=== PATIENT | male | born 1975 | race Caucasian/White ===

== ENCOUNTER 2017-04-19 21:07 | Emergency (ER) | payer SELFPAY ==
[~2017-04-19] VITALS: Ht 172.7 cm; Wt 100.0 kg
[2017-04-19 21:26] VITALS: BP 157/105
== END 2017-04-19 22:12 | disposition home or self-care (01) ==
LOC: EMS 21:09
DX: B86 Scabies (principal); R03.0 Elevated blood-pressure reading, without diagnosis of hypertension; F17.210 Nicotine dependence, cigarettes, uncomplicated
CPT/HCPCS: 99283

== ENCOUNTER 2017-08-01 21:59 | Emergency (ER) | payer MEDICAID ==
[~2017-08-01] VITALS: Ht 170.2 cm; Wt 97.3 kg
[2017-08-01 22:24] VITALS: BP 150/103
[2017-08-01] MEDS ORDERED: GABA-533 PO (22:30)
[2017-08-01] MEDS ORDERED: TEST5GEL TD (22:30)
[2017-08-01 23:18] LABS: AMPHET/METH SCREEN,URINE POSITIVE (NEGATIVE); BARBITURATE SCREEN, URINE NEGATIVE (NEGATIVE); BENZODIAZEPINES SCREEN,URINE NEGATIVE (NEGATIVE); CANNABINOID SCREEN,URINE POSITIVE (NEGATIVE); COCAINE SCREEN,URINE NEGATIVE (NEGATIVE); METHADONE SCREEN, URINE NEGATIVE (NEGATIVE); OPIATE SCREEN,URINE NEGATIVE (NEGATIVE)
[2017-08-01 23:20] LABS: PHENCYCLIDINE SCREEN,URINE NEGATIVE (NEGATIVE)
== END 2017-08-02 00:33 | disposition home or self-care (01) ==
LOC: EMS 22:00
DX: F41.9 Anxiety disorder, unspecified (principal); F19.10 Other psychoactive substance abuse, uncomplicated; I10 Essential (primary) hypertension; Z87.442 Personal history of urinary calculi; F17.210 Nicotine dependence, cigarettes, uncomplicated; Z79.899 Other long term (current) drug therapy
CPT/HCPCS: 99284

== ENCOUNTER 2017-09-25 17:45 | Inpatient (IN) | payer MEDICAID ==
[~2017-09-25] VITALS: Ht 170.2 cm; Wt 88.5 kg
[~2017-09-25 17:45] MED LIST: GABA-533 PO; TEST5GEL TD
[2017-09-25] MEDS ORDERED: ZOLPIDEM TARTRATE 10 MG TABLET PO PRN (18:15)
[2017-09-25 18:41] VITALS: BP 154/86
[2017-09-25 18:45] VITALS: BP 127/87
[2017-09-25] MEDS ORDERED: MAG HYDROX/AL HYDROX/SIMETH ES 30 ML SUSPENSION UDCUP PO PRN (20:00)
[2017-09-25] MEDS ORDERED: PETROLATUM,WHITE 71 GM JELLY TP PRN (20:00)
[2017-09-25] MEDS ORDERED: ONDANSETRON HCL 4 MG TABLET PO PRN (20:00)
[2017-09-25] MEDS ORDERED: MAGNESIUM HYDROXIDE SUSPENSION 30 ML UDCUP PO PRN (20:00)
[2017-09-25] MEDS ORDERED: IBUPROFEN 400 MG TABLET PO PRN (20:00)
[2017-09-25] MEDS ORDERED: DOCUSATE SODIUM 100 MG CAPSULE PO PRN (20:00)
[2017-09-25] MEDS ORDERED: ACETAMINOPHEN 325 MG TABLET PO PRN (20:00)
[2017-09-25] MEDS ORDERED: CloNIDine HCL 0.1 MG TABLET PO PRN (20:00)
[2017-09-25] MEDS ORDERED: PERMETHRIN 5% 60 GM CREAM TP ONE (20:00)
[2017-09-25] MEDS ORDERED: ALBUTEROL SULFATE HFA 90 MCG/PUFF 8 GM INHALER IH PRN (20:00)
[2017-09-25] MEDS ORDERED: LOPERAMIDE HCL 2 MG CAPSULE PO PRN (20:00)
[2017-09-25] MEDS: LORazepam 2 MG TABLET PO PRN (21:36)
[2017-09-26 06:04] VITALS: BP 120/70
[2017-09-26 08:26] VITALS: BP 114/67
[2017-09-26 08:56] LABS: BASOPHILS % (AUTO) 1.1 % (0.0-2.0); EOSINOPHILS % (AUTO) 4.5 % (1.0-6.0); HEMATOCRIT 39.1 % (41-53); HEMOGLOBIN 13.5 g/dL (13.5-17.5); LYMPHOCYTES # (AUTO) 1.7 K/uL (1.0-4.8); LYMPHOCYTES % (AUTO) 43.9 % (22.0-44.0); MEAN CORPUSCULAR HEMOGLOBIN 30.7 pg (26.0-34.0); MEAN CORPUSCULAR HGB CONC 34.6 G/dL (31.0-37.0); MEAN CORPUSCULAR VOLUME 89 fL (80-100); MONOCYTES # (AUTO) 0.3 K/uL (0.1-1.0); MONOCYTES % (AUTO) 8.9 % (2.0-9.0); NEUTROPHILS # (AUTO) 1.6 K/uL (1.8-7.7); NEUTROPHILS % (AUTO) 41.6 % (40.0-70.0); PLATELET COUNT (AUTO) 269 K/uL (150-450); RED BLOOD CELL COUNT(AUTO) 4.41 MIL/uL (4.50-5.90); RED CELL DISTRIBUTION WIDTH 14.3 % (11.5-14.5)
[2017-09-26] MEDS ORDERED: TESTOSTERONE 1% 50 MG-5 GM GEL PACKET TD SCH (09:00)
[2017-09-26 09:27] LABS: HEMOGLOBIN A1C 5.4 % (4.5-6.2)
[2017-09-26 09:29] LABS: ALANINE AMINOTRANSFERASE 37 U/L (12-78); ALBUMIN 3.4 g/dL (3.4-5.0); ALKALINE PHOSPHATASE 127 U/L (46-116); ANION GAP 8 mmol/L (8-16); ASPARTATE AMINOTRANSFERASE 21 U/L (15-37); BILIRUBIN,TOTAL 0.5 mg/dL (0.1-1.0); CALCIUM, TOTAL 8.8 mg/dL (8.8-10.5); CARBON DIOXIDE 27 mmol/L (22-29); CHLORIDE 101 mmol/L (98-107); CHOL/HDL RATIO 4.6 (4.2-7.3); CHOLESTEROL 176 mg/dL (131-200); CREATININE 0.91 mg/dL (0.60-1.30); FREE T4 (FREE THYROXINE) 0.98 ng/dL (0.76-1.46); GLOMERULAR FILTR. RATE CALC > 60 mL/min (>60); GLUCOSE,RANDOM 90 mg/dL (70-110); HDL CHOLESTEROL 38 mg/dL (40-60); LDL CHOL (CALC.) 91 mg/dL (0-130); POTASSIUM 3.7 mmol/L (3.5-5.1); SODIUM SERUM 136 mmol/L (136-145); THYROID STIMULATING HORMONE 0.65 uIU/mL (0.36-3.74); TOTAL PROTEIN, SERUM 6.8 g/dL (6.4-8.2); TRIGLYCERIDES 233 mg/dL (15-150); UREA NITROGEN, BLOOD 18 mg/dL (7-18)
[2017-09-26] MEDS: NICOTINE 14 MG/24 HOUR PATCH TD SCH (10:12)
[2017-09-26] MEDS: GABAPENTIN 400 MG CAPSULE PO SCH ×3 (10:13→16:51)
[2017-09-26] MEDS ORDERED: PNEUMOCOCCAL VACCINE POLYVALENT 0.5 ML VIAL [PPSV23] IM ONE (12:15)
[2017-09-26 16:26] VITALS: BP 110/84
[2017-09-26] MEDS: LORazepam 2 MG TABLET PO PRN (18:14)
[2017-09-27 02:43] VITALS: BP 119/72
[2017-09-27 08:52] VITALS: BP 116/76
[2017-09-27] MEDS: TESTOSTERONE 1% 50 MG-5 GM GEL PACKET TD SCH (09:02)
[2017-09-27] MEDS: NICOTINE 14 MG/24 HOUR PATCH TD SCH (09:02)
[2017-09-27] MEDS: GABAPENTIN 400 MG CAPSULE PO SCH ×3 (09:02→17:01)
[2017-09-27] MEDS: LORazepam 2 MG TABLET PO PRN ×2 (09:43→20:50)
[2017-09-27 16:14] VITALS: BP 119/70
[2017-09-28 00:50] VITALS: BP 116/73
[2017-09-28] MEDS: LORazepam 2 MG TABLET PO PRN ×3 (01:40→15:42)
[2017-09-28 08:00] VITALS: BP 120/72
[2017-09-28] MEDS: GABAPENTIN 400 MG CAPSULE PO SCH ×3 (08:13→16:18)
[2017-09-28] MEDS: NICOTINE 14 MG/24 HOUR PATCH TD SCH (08:13)
[2017-09-28] MEDS: TESTOSTERONE 1% 50 MG-5 GM GEL PACKET TD SCH (08:14)
[2017-09-28 09:25] LABS: BASOPHILS % (AUTO) 0.7 % (0.0-2.0); EOSINOPHILS % (AUTO) 3.8 % (1.0-6.0); HEMATOCRIT 40.5 % (41-53); HEMOGLOBIN 13.7 g/dL (13.5-17.5); LYMPHOCYTES # (AUTO) 1.9 K/uL (1.0-4.8); LYMPHOCYTES % (AUTO) 40.7 % (22.0-44.0); MEAN CORPUSCULAR HEMOGLOBIN 30.3 pg (26.0-34.0); MEAN CORPUSCULAR HGB CONC 33.9 G/dL (31.0-37.0); MEAN CORPUSCULAR VOLUME 90 fL (80-100); MONOCYTES # (AUTO) 0.3 K/uL (0.1-1.0); MONOCYTES % (AUTO) 7.1 % (2.0-9.0); NEUTROPHILS # (AUTO) 2.2 K/uL (1.8-7.7); NEUTROPHILS % (AUTO) 47.7 % (40.0-70.0); PLATELET COUNT (AUTO) 255 K/uL (150-450); RED BLOOD CELL COUNT(AUTO) 4.53 MIL/uL (4.50-5.90); RED CELL DISTRIBUTION WIDTH 14.6 % (11.5-14.5)
[2017-09-28] MEDS: HALOPERIDOL 5 MG TABLET PO PRN (15:41)
[2017-09-28] MEDS: MUPIROCIN CALCIUM 2% 15 GM CREAM TP SCH (18:00)
[2017-09-29 01:17] VITALS: BP 111/62
[2017-09-29] MEDS: LORazepam 2 MG TABLET PO PRN ×2 (06:45→12:48)
[2017-09-29] MEDS: TESTOSTERONE 1% 50 MG-5 GM GEL PACKET TD SCH (08:59)
[2017-09-29] MEDS: GABAPENTIN 400 MG CAPSULE PO SCH ×3 (08:59→16:15)
[2017-09-29] MEDS: NICOTINE 14 MG/24 HOUR PATCH TD SCH (09:01)
[2017-09-29] MEDS: MUPIROCIN CALCIUM 2% 15 GM CREAM TP SCH ×2 (09:02→16:18)
[2017-09-29 09:19] VITALS: BP 130/65
[2017-09-29] MEDS: HALOPERIDOL 5 MG TABLET PO PRN ×2 (09:27→16:24)
[2017-09-29 16:14] VITALS: BP 116/69
[2017-09-30 01:13] VITALS: BP 118/78
[2017-09-30] MEDS: LORazepam 2 MG TABLET PO PRN ×2 (03:15→08:20)
[2017-09-30] MEDS: GABAPENTIN 400 MG CAPSULE PO SCH ×2 (08:19→13:14)
[2017-09-30] MEDS: TESTOSTERONE 1% 50 MG-5 GM GEL PACKET TD SCH (08:20)
[2017-09-30] MEDS: NICOTINE 14 MG/24 HOUR PATCH TD SCH (08:20)
[2017-09-30] MEDS: MUPIROCIN CALCIUM 2% 15 GM CREAM TP SCH (08:21)
[2017-09-30 08:24] VITALS: BP 122/66
[2017-09-30] MEDS ORDERED: MUPI15CR TP (11:36)
== END 2017-09-30 13:40 | disposition home or self-care (01) | DRG 750 ==
LOC: B2S 18:04
PROVIDERS: ADMIT Psychiatry & Neurology Psychiatry; ATTEND Psychiatry & Neurology Psychiatry
PROC: 3E0234Z Introduction of Serum, Toxoid and Vaccine into Muscle, Percutaneous Approach (ICD-10-PCS; principal; 2017-09-27)
DX: F20.0 Paranoid schizophrenia (principal); G62.9 Polyneuropathy, unspecified; I10 Essential (primary) hypertension; F17.200 Nicotine dependence, unspecified, uncomplicated; F12.90 Cannabis use, unspecified, uncomplicated; E78.5 Hyperlipidemia, unspecified; D72.819 Decreased white blood cell count, unspecified; F19.10 Other psychoactive substance abuse, uncomplicated; Z23 Encounter for immunization; Z71.41 Alcohol abuse counseling and surveillance of alcoholic; Z79.899 Other long term (current) drug therapy; Z65.3 Problems related to other legal circumstances; Z71.51 Drug abuse counseling and surveillance of drug abuser
CPT/HCPCS: 83036; 84439; 84443; 87081; 90471

== ENCOUNTER 2017-11-14 02:22 | Inpatient (IN) | payer MEDICAID ==
[~2017-11-14] VITALS: Ht 170.2 cm; Wt 87.3 kg
[~2017-11-14 02:22] MED LIST changes: +MUPI15CR TP; -TEST5GEL TD
[2017-11-14 03:00] VITALS: BP 120/80
[2017-11-14] MEDS ORDERED: GABA-533 PO (09:12)
[2017-11-14] MEDS ORDERED: TRAM50TA4 PO (09:12)
[2017-11-14 10:51] VITALS: BP 112/74
[2017-11-14] MEDS ORDERED: CloNIDine HCL 0.1 MG TABLET PO PRN (11:45)
[2017-11-14] MEDS: GABAPENTIN 400 MG CAPSULE PO SCH ×2 (12:55→17:14)
[2017-11-14] MEDS: NICOTINE 21 MG/24 HOUR PATCH TD SCH (12:55)
[2017-11-14 16:20] VITALS: BP 116/70
[2017-11-15 05:04] VITALS: BP 117/72
[2017-11-15 08:07] VITALS: BP 114/71
[2017-11-15] MEDS: GABAPENTIN 400 MG CAPSULE PO SCH ×3 (08:49→16:29)
[2017-11-15] MEDS: NICOTINE 21 MG/24 HOUR PATCH TD SCH (08:49)
[2017-11-15] MEDS ORDERED: LOPERAMIDE HCL 2 MG CAPSULE PO PRN (14:15)
[2017-11-15 16:00] VITALS: BP 129/80
[2017-11-16 05:50] VITALS: BP 128/79
[2017-11-16] MEDS: NICOTINE 21 MG/24 HOUR PATCH TD SCH (08:25)
[2017-11-16] MEDS: GABAPENTIN 400 MG CAPSULE PO SCH ×2 (08:25→12:36)
[2017-11-16 08:50] VITALS: BP 124/78
== END 2017-11-16 13:05 | disposition home or self-care (01) | DRG 750 ==
LOC: B3A 03:08
PROVIDERS: ADMIT Psychiatry & Neurology Psychiatry; ATTEND Psychiatry & Neurology Psychiatry
DX: F25.9 Schizoaffective disorder, unspecified (principal); R45.851 Suicidal ideations; Z59.0 Homelessness
CPT/HCPCS: 87081

== ENCOUNTER 2017-11-14 05:10 | Emergency (ER) | payer MEDICAID ==
[~2017-11-14] VITALS: Ht 170.2 cm; Wt 90.9 kg
[2017-11-14] MEDS ORDERED: IBUPROFEN 600 MG TABLET PO ONE (06:15)
[2017-11-14 06:29] LABS: BASOPHILS % (AUTO) 0.8 % (0.0-2.0); EOSINOPHILS % (AUTO) 0.7 % (1.0-6.0); HEMATOCRIT 40.2 % (41-53); HEMOGLOBIN 13.7 g/dL (13.5-17.5); LYMPHOCYTES # (AUTO) 1.4 K/uL (1.0-4.8); LYMPHOCYTES % (AUTO) 21.7 % (22.0-44.0); MEAN CORPUSCULAR HEMOGLOBIN 30.4 pg (26.0-34.0); MEAN CORPUSCULAR HGB CONC 34.1 G/dL (31.0-37.0); MEAN CORPUSCULAR VOLUME 89 fL (80-100); MONOCYTES # (AUTO) 0.5 K/uL (0.1-1.0); MONOCYTES % (AUTO) 8.7 % (2.0-9.0); NEUTROPHILS # (AUTO) 4.3 K/uL (1.8-7.7); NEUTROPHILS % (AUTO) 68.1 % (40.0-70.0); PLATELET COUNT (AUTO) 216 K/uL (150-450); RED CELL DISTRIBUTION WIDTH 14.3 % (11.5-14.5)
[2017-11-14 06:48] LABS: ANION GAP 6 mmol/L (8-16); CALCIUM, TOTAL 9.1 mg/dL (8.8-10.5); CARBON DIOXIDE 29 mmol/L (22-29); CHLORIDE 104 mmol/L (98-107); CREATININE 1.03 mg/dL (0.60-1.30); GLOMERULAR FILTR. RATE CALC > 60 mL/min (>60); GLUCOSE,RANDOM 95 mg/dL (70-110); POTASSIUM 4.6 mmol/L (3.5-5.1); SODIUM SERUM 139 mmol/L (136-145); UREA NITROGEN, BLOOD 21 mg/dL (7-18)
[2017-11-14 06:53] LABS: ALANINE AMINOTRANSFERASE 51 U/L (12-78); ALBUMIN 4.2 g/dL (3.4-5.0); ALKALINE PHOSPHATASE 130 U/L (46-116); ASPARTATE AMINOTRANSFERASE 41 U/L (15-37); BILIRUBIN,TOTAL 0.7 mg/dL (0.1-1.0); TOTAL PROTEIN, SERUM 7.9 g/dL (6.4-8.2)
[2017-11-14 08:41] VITALS: BP 127/79
[2017-11-14] MEDS ORDERED: GABA-533 PO (09:12)
[2017-11-14] MEDS ORDERED: TRAM50TA4 PO (09:12)
== END 2017-11-14 09:59 | disposition other institution (70) ==
LOC: EMS 05:10
DX: F20.9 Schizophrenia, unspecified (principal); J02.8 Acute pharyngitis due to other specified organisms; R19.7 Diarrhea, unspecified; F32.9 Major depressive disorder, single episode, unspecified; F12.90 Cannabis use, unspecified, uncomplicated; F17.210 Nicotine dependence, cigarettes, uncomplicated; Z91.018 Allergy to other foods
CPT/HCPCS: 36415; 80053; 85025; 87430; 99285; G0480

== ENCOUNTER 2017-11-27 05:42 | Inpatient (IN) | payer MEDICAID ==
[~2017-11-27] VITALS: Ht 170.2 cm; Wt 87.5 kg
[~2017-11-27 05:42] MED LIST changes: -MUPI15CR TP
[2017-11-27 07:30] VITALS: BP 158/88
[2017-11-27 10:21] VITALS: BP 149/97
[2017-11-27] MEDS ORDERED: CloNIDine HCL 0.1 MG TABLET PO PRN (11:30)
[2017-11-27 13:23] VITALS: BP 136/90
[2017-11-27 16:00] VITALS: BP 140/88
[2017-11-27] MEDS: LORazepam 2 MG TABLET PO PRN (17:29)
[2017-11-27] MEDS ORDERED: IBUPROFEN 600 MG TABLET PO PRN (18:15)
[2017-11-27] MEDS ORDERED: ACETAMINOPHEN 325 MG TABLET PO PRN (18:15)
[2017-11-28 06:42] VITALS: BP 105/63
[2017-11-28 08:17] VITALS: BP 110/61
[2017-11-28] MEDS: DIVALPROEX SODIUM 500 MG DR TABLET PO SCH ×2 (08:59→16:47)
[2017-11-28] MEDS: RisperiDONE 1 MG TABLET PO SCH ×2 (08:59→16:47)
[2017-11-28] MEDS: LITHIUM CARBONATE 300 MG CAPSULE PO SCH ×2 (08:59→16:47)
[2017-11-28] MEDS: AmLODIPine BESYLATE 2.5 MG TABLET PO SCH (09:00)
[2017-11-28 09:07] LABS: AMPHET/METH SCREEN,URINE POSITIVE (NEGATIVE); BARBITURATE SCREEN, URINE NEGATIVE (NEGATIVE); BENZODIAZEPINES SCREEN,URINE NEGATIVE (NEGATIVE); CANNABINOID SCREEN,URINE POSITIVE (NEGATIVE); COCAINE SCREEN,URINE NEGATIVE (NEGATIVE); METHADONE SCREEN, URINE NEGATIVE (NEGATIVE); OPIATE SCREEN,URINE NEGATIVE (NEGATIVE)
[2017-11-28 09:08] LABS: PHENCYCLIDINE SCREEN,URINE NEGATIVE (NEGATIVE)
[2017-11-28 09:11] LABS: BILIRUBIN,URINE NEGATIVE (NEGATIVE); GLUCOSE, URINE (UA) NEGATIVE (NEGATIVE); KETONES,URINE NEGATIVE (NEGATIVE); LEUKOCYTE ESTERASE ,URINE NEGATIVE (NEGATIVE); NITRATE,URINE NEGATIVE (NEGATIVE); OCCULT BLOOD,URINE NEGATIVE (NEGATIVE); PH,URINE 7.5 (5.0-8.0); PROTEIN,URINE NEGATIVE (NEGATIVE); UROBILINOGEN,URINE 0.2 mg/dL (<=1.0)
[2017-11-28 09:37] LABS: APPEARANCE,URINE CLEAR (CLEAR)
[2017-11-28] MEDS: LORazepam 2 MG TABLET PO PRN ×2 (09:55→16:47)
[2017-11-28 16:00] VITALS: BP 120/72
[2017-11-28] MEDS: HALOPERIDOL 5 MG TABLET PO PRN (16:48)
[2017-11-29 03:44] VITALS: BP 111/79
[2017-11-29 08:13] VITALS: BP 114/76
[2017-11-29] MEDS: LITHIUM CARBONATE 300 MG CAPSULE PO SCH ×2 (08:54→16:46)
[2017-11-29] MEDS: DIVALPROEX SODIUM 500 MG DR TABLET PO SCH ×2 (08:54→16:46)
[2017-11-29] MEDS: RisperiDONE 1 MG TABLET PO SCH ×2 (08:54→16:46)
[2017-11-29] MEDS: AmLODIPine BESYLATE 2.5 MG TABLET PO SCH (08:55)
[2017-11-29] MEDS: LORazepam 2 MG TABLET PO PRN (15:06)
[2017-11-29 16:00] VITALS: BP 114/69
[2017-11-29] MEDS: HALOPERIDOL 5 MG TABLET PO PRN (16:46)
[2017-11-29] MEDS: ZOLPIDEM TARTRATE 10 MG TABLET PO PRN (20:50)
[2017-11-30 06:29] VITALS: BP 114/68
[2017-11-30 08:06] VITALS: BP 122/61
[2017-11-30] MEDS: DIVALPROEX SODIUM 500 MG DR TABLET PO SCH ×2 (08:39→16:52)
[2017-11-30] MEDS: LITHIUM CARBONATE 300 MG CAPSULE PO SCH ×2 (08:39→16:52)
[2017-11-30] MEDS: RisperiDONE 1 MG TABLET PO SCH ×2 (08:39→16:53)
[2017-11-30] MEDS: AmLODIPine BESYLATE 2.5 MG TABLET PO SCH (08:40)
[2017-11-30] MEDS: LORazepam 2 MG TABLET PO PRN ×2 (10:08→17:18)
[2017-11-30 16:00] VITALS: BP 130/79
[2017-11-30] MEDS: HALOPERIDOL 5 MG TABLET PO PRN (17:18)
[2017-12-01 06:19] VITALS: BP 110/63
[2017-12-01 08:07] VITALS: BP 112/64
[2017-12-01] MEDS: AmLODIPine BESYLATE 2.5 MG TABLET PO SCH (08:25)
[2017-12-01] MEDS: DIVALPROEX SODIUM 500 MG DR TABLET PO SCH ×2 (08:26→16:23)
[2017-12-01] MEDS: LITHIUM CARBONATE 300 MG CAPSULE PO SCH ×3 (08:26→16:23)
[2017-12-01] MEDS: RisperiDONE 1 MG TABLET PO SCH ×2 (08:26→16:23)
[2017-12-01 08:59] LABS: LITHIUM 0.27 mmol/L (0.60-1.20)
[2017-12-01] MEDS: LORazepam 2 MG TABLET PO PRN ×2 (12:18→16:23)
[2017-12-01] MEDS: HALOPERIDOL 5 MG TABLET PO PRN (16:23)
[2017-12-01 17:46] VITALS: BP 121/73
[2017-12-02 04:59] VITALS: BP 118/72
[2017-12-02 08:05] VITALS: BP 120/68
[2017-12-02] MEDS: LITHIUM CARBONATE 300 MG CAPSULE PO SCH ×3 (08:27→16:16)
[2017-12-02] MEDS: DIVALPROEX SODIUM 500 MG DR TABLET PO SCH ×2 (08:27→16:16)
[2017-12-02] MEDS: RisperiDONE 1 MG TABLET PO SCH ×2 (08:27→16:16)
[2017-12-02] MEDS: AmLODIPine BESYLATE 2.5 MG TABLET PO SCH (08:27)
[2017-12-02] MEDS: LORazepam 2 MG TABLET PO PRN ×2 (12:46→16:46)
[2017-12-02 16:00] VITALS: BP 115/77
[2017-12-02] MEDS: ZOLPIDEM TARTRATE 10 MG TABLET PO PRN (23:57)
[2017-12-03 01:38] VITALS: BP 137/87
[2017-12-03 08:07] VITALS: BP 120/81
[2017-12-03] MEDS: DIVALPROEX SODIUM 500 MG DR TABLET PO SCH ×2 (08:33→16:40)
[2017-12-03] MEDS: LITHIUM CARBONATE 300 MG CAPSULE PO SCH ×3 (08:33→16:40)
[2017-12-03] MEDS: RisperiDONE 1 MG TABLET PO SCH ×2 (08:33→16:40)
[2017-12-03] MEDS: AmLODIPine BESYLATE 2.5 MG TABLET PO SCH (08:33)
[2017-12-03] MEDS: LORazepam 2 MG TABLET PO PRN ×2 (11:18→16:40)
[2017-12-03 16:00] VITALS: BP 124/87
[2017-12-03] MEDS: HALOPERIDOL 5 MG TABLET PO PRN (16:40)
[2017-12-03] MEDS: ZOLPIDEM TARTRATE 10 MG TABLET PO PRN (20:56)
[2017-12-04 00:10] VITALS: BP 128/85
[2017-12-04] MEDS: LORazepam 2 MG TABLET PO PRN ×2 (00:55→21:24)
[2017-12-04] MEDS: HALOPERIDOL 5 MG TABLET PO PRN (00:55)
[2017-12-04 08:06] VITALS: BP 110/62
[2017-12-04 08:32] LABS: BASOPHILS % (AUTO) 0.8 % (0.0-2.0); HEMATOCRIT 42.6 % (41-53); HEMOGLOBIN 14.5 g/dL (13.5-17.5); LYMPHOCYTES % (AUTO) 41.6 % (22.0-44.0); MEAN CORPUSCULAR HEMOGLOBIN 29.8 pg (26.0-34.0); MEAN CORPUSCULAR HGB CONC 33.9 G/dL (31.0-37.0); MEAN CORPUSCULAR VOLUME 88 fL (80-100); MONOCYTES # (AUTO) 0.4 K/uL (0.1-1.0); MONOCYTES % (AUTO) 7.6 % (2.0-9.0); NEUTROPHILS # (AUTO) 2.3 K/uL (1.8-7.7); PLATELET COUNT (AUTO) 235 K/uL (150-450); RED BLOOD CELL COUNT(AUTO) 4.85 MIL/uL (4.50-5.90)
[2017-12-04] MEDS: AmLODIPine BESYLATE 2.5 MG TABLET PO SCH (08:35)
[2017-12-04] MEDS: LITHIUM CARBONATE 300 MG CAPSULE PO SCH ×3 (08:35→16:27)
[2017-12-04] MEDS: DIVALPROEX SODIUM 500 MG DR TABLET PO SCH ×2 (08:35→16:27)
[2017-12-04] MEDS: RisperiDONE 1 MG TABLET PO SCH ×2 (08:35→16:27)
[2017-12-04 09:17] LABS: ALANINE AMINOTRANSFERASE 36 U/L (12-78); ALBUMIN 3.8 g/dL (3.4-5.0); ALKALINE PHOSPHATASE 112 U/L (46-116); ANION GAP 8 mmol/L (8-16); ASPARTATE AMINOTRANSFERASE 17 U/L (15-37); BILIRUBIN,TOTAL 0.5 mg/dL (0.1-1.0); CALCIUM, TOTAL 9.6 mg/dL (8.8-10.5); CARBON DIOXIDE 29 mmol/L (22-29); CHLORIDE 105 mmol/L (98-107); CHOL/HDL RATIO 5.7 (4.2-7.3); CHOLESTEROL 198 mg/dL (131-200); CREATININE 0.99 mg/dL (0.60-1.30); GLOMERULAR FILTR. RATE CALC > 60 mL/min (>60); GLUCOSE,RANDOM 89 mg/dL (70-110); HDL CHOLESTEROL 35 mg/dL (40-60); LDL CHOL (CALC.) 101 mg/dL (0-130); POTASSIUM 4.4 mmol/L (3.5-5.1); SODIUM SERUM 142 mmol/L (136-145); TOTAL PROTEIN, SERUM 7.2 g/dL (6.4-8.2); TRIGLYCERIDES 310 mg/dL (15-150); UREA NITROGEN, BLOOD 13 mg/dL (7-18)
[2017-12-04 11:17] LABS: LITHIUM 0.53 mmol/L (0.60-1.20)
[2017-12-04 16:00] VITALS: BP 111/65
[2017-12-04] MEDS: ZOLPIDEM TARTRATE 10 MG TABLET PO PRN (21:24)
[2017-12-05 00:34] VITALS: BP 128/79
[2017-12-05 08:34] VITALS: BP 121/76
[2017-12-05] MEDS: LITHIUM CARBONATE 300 MG CAPSULE PO SCH ×3 (08:39→16:58)
[2017-12-05] MEDS: DIVALPROEX SODIUM 500 MG DR TABLET PO SCH ×2 (08:40→16:58)
[2017-12-05] MEDS: RisperiDONE 1 MG TABLET PO SCH ×2 (08:40→16:58)
[2017-12-05] MEDS: AmLODIPine BESYLATE 2.5 MG TABLET PO SCH (08:40)
[2017-12-05] MEDS: LORazepam 2 MG TABLET PO PRN ×3 (10:25→20:59)
[2017-12-05] MEDS: HALOPERIDOL 5 MG TABLET PO PRN ×2 (10:25→16:58)
[2017-12-05 16:33] VITALS: BP 116/64
[2017-12-05] MEDS: ZOLPIDEM TARTRATE 10 MG TABLET PO PRN (20:59)
[2017-12-06 00:43] VITALS: BP 121/78
[2017-12-06] MEDS: DIVALPROEX SODIUM 500 MG DR TABLET PO SCH ×2 (08:09→16:14)
[2017-12-06] MEDS: AmLODIPine BESYLATE 2.5 MG TABLET PO SCH (08:09)
[2017-12-06] MEDS: HALOPERIDOL 5 MG TABLET PO PRN (08:09)
[2017-12-06] MEDS: LORazepam 2 MG TABLET PO PRN ×3 (08:09→16:14)
[2017-12-06] MEDS: LITHIUM CARBONATE 300 MG CAPSULE PO SCH ×3 (08:09→17:21)
[2017-12-06] MEDS: RisperiDONE 1 MG TABLET PO SCH ×2 (08:09→16:14)
[2017-12-06 08:54] VITALS: BP 138/80
[2017-12-06 16:27] VITALS: BP 122/68
[2017-12-07 00:02] VITALS: BP 141/88
[2017-12-07] MEDS: ZOLPIDEM TARTRATE 10 MG TABLET PO PRN (00:04)
[2017-12-07] MEDS: LORazepam 2 MG TABLET PO PRN (00:04)
[2017-12-07] MEDS: HALOPERIDOL 5 MG TABLET PO PRN (00:04)
[2017-12-07] MEDS: DIVALPROEX SODIUM 500 MG DR TABLET PO SCH (08:35)
[2017-12-07] MEDS: AmLODIPine BESYLATE 2.5 MG TABLET PO SCH (08:35)
[2017-12-07] MEDS: LITHIUM CARBONATE 300 MG CAPSULE PO SCH ×2 (08:35→12:44)
[2017-12-07] MEDS: RisperiDONE 1 MG TABLET PO SCH (08:35)
[2017-12-07 09:29] VITALS: BP 135/78
[2017-12-07] MEDS ORDERED: DIVA500T2 PO (12:17)
[2017-12-07] MEDS ORDERED: LITH300C3 PO (12:20)
[2017-12-07] MEDS ORDERED: RISP1 PO (12:21)
[2017-12-07] MEDS ORDERED: AMLO2.5T3 PO (12:21)
== END 2017-12-07 14:45 | disposition home or self-care (01) | DRG 750 ==
LOC: B3A 09:40 → EDSTATUS 10:07 → B3A 11-29 13:14
PROVIDERS: ADMIT Psychiatry & Neurology Psychiatry; ATTEND Psychiatry & Neurology Psychiatry
DX: F20.0 Paranoid schizophrenia (principal); Z59.0 Homelessness; E78.1 Pure hyperglyceridemia; I10 Essential (primary) hypertension; Z23 Encounter for immunization
CPT/HCPCS: 80307; 87081; 90686

== ENCOUNTER 2019-05-04 09:07 | Inpatient (IN) | payer MEDICAID ==
[~2019-05-04] VITALS: Ht 170.2 cm; Wt 86.1 kg
[~2019-05-04 09:07] MED LIST changes: +AMLO2.5T2 PO; +DIVA-78 PO; -GABA-533 PO; +LITH300C3 PO; +MVITFE PO; +RISP1 PO
[2019-05-04 15:10] VITALS: BP 157/88
[2019-05-04] MEDS ORDERED: HALOPERIDOL 5 MG TABLET PO PRN (15:30)
[2019-05-04] MEDS ORDERED: ZOLPIDEM TARTRATE 10 MG TABLET PO PRN (15:30)
[2019-05-04] MEDS ORDERED: -PHARMACY VACCINE NOTE- MISC ONE (16:15)
[2019-05-04] MEDS: LORazepam 2 MG TABLET PO PRN (16:32)
[2019-05-04 18:07] VITALS: BP_SYST 148; BP_SYST 157; BP_DIAS 86; BP_DIAS 88
[2019-05-04] MEDS: NICOTINE 21 MG/24 HOUR PATCH TD SCH (18:15)
[2019-05-05 06:15] VITALS: BP 132/75
[2019-05-05 08:00] VITALS: BP 126/65
[2019-05-05 08:17] LABS: EOSINOPHILS % (AUTO) 1.9 % (1.0-6.0); HEMATOCRIT 39.8 % (41-53); HEMOGLOBIN 13.1 g/dL (13.5-17.5); LYMPHOCYTES # (AUTO) 1.7 K/uL (1.0-4.8); LYMPHOCYTES % (AUTO) 39.9 % (22.0-44.0); MEAN CORPUSCULAR HEMOGLOBIN 29.9 pg (26.0-34.0); MEAN CORPUSCULAR VOLUME 91 fL (80-100); MONOCYTES # (AUTO) 0.3 K/uL (0.1-1.0); NEUTROPHILS # (AUTO) 2.1 K/uL (1.8-7.7); NEUTROPHILS % (AUTO) 49.2 % (40.0-70.0); PLATELET COUNT (AUTO) 301 K/uL (150-450); RED BLOOD CELL COUNT(AUTO) 4.39 MIL/uL (4.50-5.90); RED CELL DISTRIBUTION WIDTH 14.2 % (11.5-14.5)
[2019-05-05 08:33] LABS: LITHIUM < 0.20 mmol/L (0.60-1.20)
[2019-05-05] MEDS: RisperiDONE 1 MG TABLET PO SCH ×2 (08:43→17:09)
[2019-05-05] MEDS: AmLODIPine BESYLATE 2.5 MG TABLET PO SCH (08:43)
[2019-05-05] MEDS: LITHIUM CARBONATE 300 MG CAPSULE PO SCH ×2 (08:43→17:09)
[2019-05-05] MEDS: NICOTINE 21 MG/24 HOUR PATCH TD SCH ×2 (08:44→11:48)
[2019-05-05 08:49] LABS: ALANINE AMINOTRANSFERASE 40 U/L (12-78); ALBUMIN 3.6 g/dL (3.4-5.0); ALKALINE PHOSPHATASE 139 U/L (46-116); ANION GAP 4 mmol/L (8-16); ASPARTATE AMINOTRANSFERASE 24 U/L (15-37); BILIRUBIN,TOTAL 0.4 mg/dL (0.1-1.0); CALCIUM, TOTAL 9.5 mg/dL (8.8-10.5); CARBON DIOXIDE 30 mmol/L (22-29); CHLORIDE 104 mmol/L (98-107); CHOL/HDL RATIO 4.4 (4.2-7.3); CHOLESTEROL 206 mg/dL (131-200); CREATININE 1.11 mg/dL (0.60-1.30); GLOMERULAR FILTR. RATE CALC > 60 mL/min (>60); GLUCOSE,RANDOM 96 mg/dL (70-110); HDL CHOLESTEROL 47 mg/dL (40-60); LDL CHOL (CALC.) 135 mg/dL (0-130); POTASSIUM 4.1 mmol/L (3.5-5.1); SODIUM SERUM 138 mmol/L (136-145); TOTAL PROTEIN, SERUM 7.4 g/dL (6.4-8.2); TRIGLYCERIDES 119 mg/dL (15-150); UREA NITROGEN, BLOOD 14 mg/dL (7-18); VALPROIC ACID < 3 mcg/mL (50-100)
[2019-05-05 16:11] VITALS: BP 129/75
[2019-05-05] MEDS ORDERED: ACETAMINOPHEN 325 MG TABLET PO PRN (16:45)
[2019-05-05] MEDS ORDERED: IBUPROFEN 600 MG TABLET PO PRN (16:45)
[2019-05-05] MEDS: LORazepam 2 MG TABLET PO PRN (17:09)
[2019-05-05] MEDS: DIVALPROEX SODIUM 500 MG DR TABLET PO SCH (20:55)
[2019-05-06 06:25] VITALS: BP 114/70
[2019-05-06 08:16] VITALS: BP 124/79
[2019-05-06] MEDS: AmLODIPine BESYLATE 2.5 MG TABLET PO SCH (08:19)
[2019-05-06] MEDS: LITHIUM CARBONATE 300 MG CAPSULE PO SCH ×2 (08:19→16:47)
[2019-05-06] MEDS: NICOTINE 21 MG/24 HOUR PATCH TD SCH (09:08)
[2019-05-06] MEDS: RisperiDONE 1 MG TABLET PO SCH ×2 (09:15→16:47)
[2019-05-06] MEDS: LORazepam 2 MG TABLET PO PRN ×2 (14:16→20:31)
[2019-05-06 16:06] VITALS: BP 138/70
[2019-05-06] MEDS: DIVALPROEX SODIUM 500 MG DR TABLET PO SCH (20:31)
[2019-05-07 00:56] VITALS: BP 107/65
[2019-05-07] MEDS: LITHIUM CARBONATE 300 MG CAPSULE PO SCH (08:47)
[2019-05-07] MEDS: RisperiDONE 1 MG TABLET PO SCH (08:47)
[2019-05-07 08:49] VITALS: BP 126/71
[2019-05-07] MEDS: AmLODIPine BESYLATE 2.5 MG TABLET PO SCH (08:49)
[2019-05-07] MEDS: NICOTINE 21 MG/24 HOUR PATCH TD SCH (08:56)
[2019-05-07] MEDS ORDERED: LITH300C3 PO (10:35)
== END 2019-05-07 13:43 | disposition home or self-care (01) | DRG 750 ==
LOC: B2S 16:02 → B3A 16:16 → UNDODISIN 05-07 13:30
PROVIDERS: ADMIT Psychiatry & Neurology Psychiatry; ATTEND Psychiatry & Neurology Psychiatry
DX: F25.9 Schizoaffective disorder, unspecified (principal); D64.9 Anemia, unspecified; E78.1 Pure hyperglyceridemia; F12.90 Cannabis use, unspecified, uncomplicated; F15.90 Other stimulant use, unspecified, uncomplicated; I10 Essential (primary) hypertension
CPT/HCPCS: 80074

== ENCOUNTER 2019-06-02 06:53 | Inpatient (IN) | payer MEDICAID ==
[~2019-06-02] VITALS: Ht 167.6 cm; Wt 82.7 kg
[~2019-06-02 06:53] MED LIST changes: -MVITFE PO
[2019-06-02 09:16] VITALS: BP 145/96
[2019-06-02] MEDS ORDERED: ZOLPIDEM TARTRATE 10 MG TABLET PO PRN (09:30)
[2019-06-02] MEDS ORDERED: IBUPROFEN 600 MG TABLET PO PRN ×2 (10:15→19:45)
[2019-06-02] MEDS: LORazepam 2 MG TABLET PO PRN (10:17)
[2019-06-02] MEDS: HALOPERIDOL 5 MG TABLET PO PRN (10:17)
[2019-06-02 10:37] VITALS: BP 124/81
[2019-06-02 10:43] VITALS: BP 124/81
[2019-06-02] MEDS ORDERED: AMLO5TAB9 PO (12:50)
[2019-06-02] MEDS ORDERED: INFLUENZA VIRUS VACCINE QVS 2019-20 (3YR+)/PF 60 MCG/0.5 ML SYRINGE IM ONE (13:00)
[2019-06-02] MEDS ORDERED: -PHARMACY VACCINE NOTE- MISC ONE (13:00)
[2019-06-02 16:21] VITALS: BP 116/76
[2019-06-02] MEDS ORDERED: BACITRACIN 28.4 GM OINTMENT TP PRN (19:45)
[2019-06-02] MEDS ORDERED: PETROLATUM,WHITE 28 GM JELLY TP PRN (19:45)
[2019-06-02] MEDS ORDERED: ONDANSETRON HCL 4 MG TABLET PO PRN (19:45)
[2019-06-02] MEDS ORDERED: BENZOCAINE/MENTHOL LOZENGE MM PRN (19:45)
[2019-06-02] MEDS ORDERED: MAG HYDROX/AL HYDROX/SIMETH ES 30 ML SUSPENSION UDCUP PO PRN (19:45)
[2019-06-02] MEDS ORDERED: DOCUSATE SODIUM 100 MG CAPSULE PO PRN (19:45)
[2019-06-02] MEDS ORDERED: ACETAMINOPHEN 325 MG TABLET PO PRN (19:45)
[2019-06-02] MEDS ORDERED: ALBUTEROL SULFATE HFA 90 MCG/PUFF 8 GM INHALER IH PRN (19:45)
[2019-06-02] MEDS ORDERED: OMEPRAZOLE 20 MG CAPSULE PO PRN (19:45)
[2019-06-02] MEDS ORDERED: CloNIDine HCL 0.1 MG TABLET PO PRN (19:45)
[2019-06-02] MEDS ORDERED: LOPERAMIDE HCL 2 MG CAPSULE PO PRN (19:45)
[2019-06-02] MEDS ORDERED: MAGNESIUM HYDROXIDE SUSPENSION 30 ML UDCUP PO PRN (19:45)
[2019-06-03 06:46] VITALS: BP 107/58
[2019-06-03 08:18] VITALS: BP 106/68
[2019-06-03 08:28] LABS: BASOPHILS % (AUTO) 0.5 % (0.0-2.0); HEMATOCRIT 39.6 % (41-53); HEMOGLOBIN 13.2 g/dL (13.5-17.5); LYMPHOCYTES # (AUTO) 1.3 K/uL (1.0-4.8); LYMPHOCYTES % (AUTO) 28.5 % (22.0-44.0); MEAN CORPUSCULAR HEMOGLOBIN 29.9 pg (26.0-34.0); MEAN CORPUSCULAR HGB CONC 33.4 G/dL (31.0-37.0); MEAN CORPUSCULAR VOLUME 90 fL (80-100); MONOCYTES # (AUTO) 0.3 K/uL (0.1-1.0); MONOCYTES % (AUTO) 6.2 % (2.0-9.0); NEUTROPHILS # (AUTO) 2.9 K/uL (1.8-7.7); NEUTROPHILS % (AUTO) 61.8 % (40.0-70.0); PLATELET COUNT (AUTO) 269 K/uL (150-450); RED BLOOD CELL COUNT(AUTO) 4.43 MIL/uL (4.50-5.90); RED CELL DISTRIBUTION WIDTH 14.2 % (11.5-14.5)
[2019-06-03 08:59] LABS: ALANINE AMINOTRANSFERASE 33 U/L (12-78); ALBUMIN 3.5 g/dL (3.4-5.0); ALKALINE PHOSPHATASE 153 U/L (46-116); ANION GAP 7 mmol/L (8-16); ASPARTATE AMINOTRANSFERASE 20 U/L (15-37); BILIRUBIN,TOTAL 0.8 mg/dL (0.1-1.0); CALCIUM, TOTAL 9.3 mg/dL (8.8-10.5); CARBON DIOXIDE 30 mmol/L (22-29); CHLORIDE 104 mmol/L (98-107); CHOL/HDL RATIO 3.3 (4.2-7.3); CHOLESTEROL 161 mg/dL (131-200); CREATININE 0.98 mg/dL (0.60-1.30); GLOMERULAR FILTR. RATE CALC > 60 mL/min (>60); GLUCOSE,RANDOM 100 mg/dL (70-110); HDL CHOLESTEROL 49 mg/dL (40-60); LDL CHOL (CALC.) 88 mg/dL (0-130); SODIUM SERUM 141 mmol/L (136-145); TOTAL PROTEIN, SERUM 6.8 g/dL (6.4-8.2); TRIGLYCERIDES 118 mg/dL (15-150); UREA NITROGEN, BLOOD 9 mg/dL (7-18)
[2019-06-03 09:17] LABS: HEMOGLOBIN A1C 5.5 % (3.8-5.6)
[2019-06-03 09:21] LABS: LITHIUM < 0.20 mmol/L (0.60-1.20)
[2019-06-03] MEDS: RisperiDONE 1 MG TABLET PO SCH ×2 (10:10→17:23)
[2019-06-03] MEDS: LITHIUM CARBONATE 300 MG CAPSULE PO SCH ×2 (10:10→17:23)
[2019-06-03 17:24] VITALS: BP 119/84
[2019-06-03] MEDS: DIVALPROEX SODIUM 500 MG DR TABLET PO SCH (21:00)
[2019-06-04 08:19] LABS: AMPHET/METH SCREEN,URINE POSITIVE (NEGATIVE); BARBITURATE SCREEN, URINE NEGATIVE (NEGATIVE); BENZODIAZEPINES SCREEN,URINE NEGATIVE (NEGATIVE); CANNABINOID SCREEN,URINE POSITIVE (NEGATIVE); COCAINE SCREEN,URINE NEGATIVE (NEGATIVE); METHADONE SCREEN, URINE NEGATIVE (NEGATIVE)
[2019-06-04 08:21] LABS: BILIRUBIN,URINE NEGATIVE (NEGATIVE); GLUCOSE, URINE (UA) NEGATIVE (NEGATIVE); KETONES,URINE NEGATIVE (NEGATIVE); LEUKOCYTE ESTERASE ,URINE NEGATIVE (NEGATIVE); NITRATE,URINE NEGATIVE (NEGATIVE); OCCULT BLOOD,URINE NEGATIVE (NEGATIVE); PROTEIN,URINE NEGATIVE (NEGATIVE)
[2019-06-04 08:28] VITALS: BP 120/70
[2019-06-04 08:34] LABS: OPIATE SCREEN,URINE NEGATIVE (NEGATIVE)
[2019-06-04 08:35] LABS: APPEARANCE,URINE CLEAR (CLEAR)
[2019-06-04 08:36] LABS: PHENCYCLIDINE SCREEN,URINE NEGATIVE (NEGATIVE)
[2019-06-04] MEDS: RisperiDONE 1 MG TABLET PO SCH ×2 (09:00→16:41)
[2019-06-04] MEDS: LITHIUM CARBONATE 300 MG CAPSULE PO SCH ×2 (09:30→16:41)
[2019-06-04] MEDS: HALOPERIDOL 5 MG TABLET PO PRN (09:46)
[2019-06-04] MEDS: LORazepam 2 MG TABLET PO PRN ×2 (09:46→20:52)
[2019-06-04 16:07] VITALS: BP 114/72
[2019-06-04] MEDS: DIVALPROEX SODIUM 500 MG DR TABLET PO SCH (20:52)
[2019-06-05 05:52] VITALS: BP 111/71
[2019-06-05 08:34] VITALS: BP 120/73
[2019-06-05] MEDS: RisperiDONE 1 MG TABLET PO SCH (09:16)
[2019-06-05] MEDS: LITHIUM CARBONATE 300 MG CAPSULE PO SCH (09:16)
== END 2019-06-05 15:03 | disposition home or self-care (01) | DRG 750 ==
LOC: B3A 09:46
PROVIDERS: ADMIT Psychiatry & Neurology Psychiatry; ATTEND Psychiatry & Neurology Psychiatry
DX: F20.0 Paranoid schizophrenia (principal); R45.851 Suicidal ideations; G62.9 Polyneuropathy, unspecified; I10 Essential (primary) hypertension; F10.10 Alcohol abuse, uncomplicated; F41.9 Anxiety disorder, unspecified; F12.90 Cannabis use, unspecified, uncomplicated; E78.5 Hyperlipidemia, unspecified; F17.200 Nicotine dependence, unspecified, uncomplicated; F19.10 Other psychoactive substance abuse, uncomplicated; Y90.9 Presence of alcohol in blood, level not specified; Q98.4 Klinefelter syndrome, unspecified; Z28.21 Immunization not carried out because of patient refusal
CPT/HCPCS: 80307; 83036; 87081

== ENCOUNTER 2019-06-13 21:10 | Inpatient (IN) | payer MEDICAID ==
[~2019-06-13] VITALS: Ht 167.6 cm; Wt 76.7 kg
[~2019-06-13 21:10] MED LIST changes: -AMLO2.5T2 PO
[2019-06-13 22:33] LABS: BASOPHILS % (AUTO) 0.6 % (0.0-2.0); EOSINOPHILS % (AUTO) 1.3 % (1.0-6.0); HEMATOCRIT 38.4 % (41-53); HEMOGLOBIN 12.9 g/dL (13.5-17.5); LYMPHOCYTES # (AUTO) 1.4 K/uL (1.0-4.8); LYMPHOCYTES % (AUTO) 20.2 % (22.0-44.0); MEAN CORPUSCULAR HEMOGLOBIN 29.9 pg (26.0-34.0); MEAN CORPUSCULAR HGB CONC 33.7 G/dL (31.0-37.0); MEAN CORPUSCULAR VOLUME 89 fL (80-100); MONOCYTES # (AUTO) 0.4 K/uL (0.1-1.0); MONOCYTES % (AUTO) 6.3 % (2.0-9.0); NEUTROPHILS % (AUTO) 71.6 % (40.0-70.0); PLATELET COUNT (AUTO) 327 K/uL (150-450); RED BLOOD CELL COUNT(AUTO) 4.33 MIL/uL (4.50-5.90); RED CELL DISTRIBUTION WIDTH 14.4 % (11.5-14.5)
[2019-06-13 22:45] LABS: ANION GAP 11 mmol/L (8-16); CALCIUM, TOTAL 9.1 mg/dL (8.8-10.5); CARBON DIOXIDE 27 mmol/L (22-29); CHLORIDE 102 mmol/L (98-107); CREATININE 0.97 mg/dL (0.60-1.30); GLOMERULAR FILTR. RATE CALC > 60 mL/min (>60); GLUCOSE,RANDOM 112 mg/dL (70-110); POTASSIUM 3.7 mmol/L (3.5-5.1); SODIUM SERUM 140 mmol/L (136-145); UREA NITROGEN, BLOOD 14 mg/dL (7-18)
[2019-06-13 22:50] LABS: ALANINE AMINOTRANSFERASE 42 U/L (12-78); ALBUMIN 3.9 g/dL (3.4-5.0); ALKALINE PHOSPHATASE 153 U/L (46-116); ASPARTATE AMINOTRANSFERASE 38 U/L (15-37); BILIRUBIN,TOTAL 0.5 mg/dL (0.1-1.0); TOTAL PROTEIN, SERUM 7.5 g/dL (6.4-8.2)
[2019-06-13 23:25] LABS: LITHIUM < 0.20 mmol/L (0.60-1.20)
[2019-06-14] MEDS ORDERED: -PHARMACY VACCINE NOTE- MISC ONE (04:15)
[2019-06-14 08:00] VITALS: BP 131/70
[2019-06-14] MEDS: LORazepam 2 MG TABLET PO PRN ×2 (10:42→19:46)
[2019-06-14] MEDS ORDERED: MAGNESIUM HYDROXIDE SUSPENSION 30 ML UDCUP PO PRN (11:30)
[2019-06-14] MEDS ORDERED: CloNIDine HCL 0.1 MG TABLET PO PRN (11:30)
[2019-06-14] MEDS ORDERED: OMEPRAZOLE 20 MG CAPSULE PO PRN (11:30)
[2019-06-14] MEDS ORDERED: DOCUSATE SODIUM 100 MG CAPSULE PO PRN (11:30)
[2019-06-14] MEDS ORDERED: BENZOCAINE/MENTHOL LOZENGE MM PRN (11:30)
[2019-06-14] MEDS ORDERED: BACITRACIN 28.4 GM OINTMENT TP PRN (11:30)
[2019-06-14] MEDS ORDERED: MAG HYDROX/AL HYDROX/SIMETH ES 30 ML SUSPENSION UDCUP PO PRN (11:30)
[2019-06-14] MEDS ORDERED: ONDANSETRON HCL 4 MG TABLET PO PRN (11:30)
[2019-06-14] MEDS ORDERED: ACETAMINOPHEN 325 MG TABLET PO PRN (11:30)
[2019-06-14] MEDS ORDERED: ALBUTEROL SULFATE HFA 90 MCG/PUFF 8 GM INHALER IH PRN (11:30)
[2019-06-14] MEDS ORDERED: LOPERAMIDE HCL 2 MG CAPSULE PO PRN (11:30)
[2019-06-14] MEDS ORDERED: IBUPROFEN 600 MG TABLET PO PRN (11:30)
[2019-06-14] MEDS ORDERED: PETROLATUM,WHITE 28 GM JELLY TP PRN (11:30)
[2019-06-14 16:08] VITALS: BP 137/66
[2019-06-14] MEDS: HALOPERIDOL 5 MG TABLET PO PRN (19:46)
[2019-06-15 03:35] VITALS: BP 128/68
[2019-06-15 08:01] LABS: CHOL/HDL RATIO 2.8 (4.2-7.3)
[2019-06-15] MEDS: MULTIVITAMINS WITH MINERALS, THERAPEUTIC TABLET PO SCH (09:05)
[2019-06-15] MEDS: LORazepam 2 MG TABLET PO PRN (16:03)
[2019-06-15] MEDS: HALOPERIDOL 5 MG TABLET PO PRN (16:03)
[2019-06-15 16:07] VITALS: BP 135/71
[2019-06-15] MEDS: ZOLPIDEM TARTRATE 10 MG TABLET PO PRN (20:32)
[2019-06-15] MEDS: DIVALPROEX SODIUM 500 MG DR TABLET PO SCH (20:32)
[2019-06-16 05:04] VITALS: BP 138/81
[2019-06-16 08:15] VITALS: BP 126/64
[2019-06-16] MEDS: LITHIUM CARBONATE 300 MG CAPSULE PO SCH ×2 (08:51→17:46)
[2019-06-16] MEDS: MULTIVITAMINS WITH MINERALS, THERAPEUTIC TABLET PO SCH (08:51)
[2019-06-16] MEDS: RisperiDONE 1 MG TABLET PO SCH ×2 (08:51→17:46)
[2019-06-16 16:07] VITALS: BP 116/74
[2019-06-16] MEDS: HALOPERIDOL 5 MG TABLET PO PRN (17:46)
[2019-06-16] MEDS: LORazepam 2 MG TABLET PO PRN (17:46)
[2019-06-16] MEDS: DIVALPROEX SODIUM 500 MG DR TABLET PO SCH (21:30)
[2019-06-16] MEDS: ZOLPIDEM TARTRATE 10 MG TABLET PO PRN (21:30)
[2019-06-17 06:21] VITALS: BP 108/58
[2019-06-17 08:10] VITALS: BP 110/60
[2019-06-17] MEDS: RisperiDONE 1 MG TABLET PO SCH ×2 (08:46→16:41)
[2019-06-17] MEDS: LITHIUM CARBONATE 300 MG CAPSULE PO SCH ×2 (08:46→16:41)
[2019-06-17] MEDS: MULTIVITAMINS WITH MINERALS, THERAPEUTIC TABLET PO SCH (08:46)
[2019-06-17] MEDS: LORazepam 2 MG TABLET PO PRN ×2 (13:38→20:45)
[2019-06-17 16:08] VITALS: BP 100/60
[2019-06-17] MEDS: DIVALPROEX SODIUM 500 MG DR TABLET PO SCH (20:45)
[2019-06-18] MEDS: MULTIVITAMINS WITH MINERALS, THERAPEUTIC TABLET PO SCH (08:49)
[2019-06-18] MEDS: LITHIUM CARBONATE 300 MG CAPSULE PO SCH ×2 (08:49→16:24)
[2019-06-18] MEDS: RisperiDONE 1 MG TABLET PO SCH ×2 (08:49→16:24)
[2019-06-18 16:21] VITALS: BP 124/68
[2019-06-18] MEDS: LORazepam 2 MG TABLET PO PRN (16:24)
[2019-06-18] MEDS: HALOPERIDOL 5 MG TABLET PO PRN (16:24)
[2019-06-18] MEDS: ZOLPIDEM TARTRATE 10 MG TABLET PO PRN (20:43)
[2019-06-18] MEDS: DIVALPROEX SODIUM 500 MG DR TABLET PO SCH (20:43)
[2019-06-19 08:00] VITALS: BP 120/78
[2019-06-19] MEDS: RisperiDONE 1 MG TABLET PO SCH (08:37)
[2019-06-19] MEDS: MULTIVITAMINS WITH MINERALS, THERAPEUTIC TABLET PO SCH (08:37)
[2019-06-19] MEDS: LITHIUM CARBONATE 300 MG CAPSULE PO SCH (08:38)
== END 2019-06-19 12:05 | disposition home or self-care (01) | DRG 750 ==
LOC: EMS 21:12 → B3A 22:00
PROVIDERS: ADMIT Psychiatry & Neurology Psychiatry; ATTEND Psychiatry & Neurology Psychiatry
DX: F20.0 Paranoid schizophrenia (principal); R45.851 Suicidal ideations; G62.9 Polyneuropathy, unspecified; F12.90 Cannabis use, unspecified, uncomplicated; D50.9 Iron deficiency anemia, unspecified; E78.5 Hyperlipidemia, unspecified; F19.10 Other psychoactive substance abuse, uncomplicated; F17.210 Nicotine dependence, cigarettes, uncomplicated; Z59.0 Homelessness; G89.29 Other chronic pain; F32.9 Major depressive disorder, single episode, unspecified; F41.9 Anxiety disorder, unspecified; M54.9 Dorsalgia, unspecified; I10 Essential (primary) hypertension; Q98.4 Klinefelter syndrome, unspecified; Z91.018 Allergy to other foods; Z79.899 Other long term (current) drug therapy
CPT/HCPCS: 87081; G0480

== ENCOUNTER 2019-08-04 20:35 | Inpatient (IN) | payer MEDICAID ==
[~2019-08-04] VITALS: Ht 170.2 cm; Wt 78.6 kg
[~2019-08-04 20:35] MED LIST changes: -RISP1 PO; +RISP1TAB27 PO
[2019-08-04] MEDS ORDERED: AMLO10TA7 PO (21:34)
[2019-08-04] MEDS ORDERED: QUET200T PO ×2 (21:34)
[2019-08-04 21:41] LABS: BASOPHILS % (AUTO) 1.2 % (0.0-2.0); EOSINOPHILS % (AUTO) 1.2 % (1.0-6.0); HEMATOCRIT 37.2 % (41-53); HEMOGLOBIN 12.7 g/dL (13.5-17.5); LYMPHOCYTES # (AUTO) 1.3 K/uL (1.0-4.8); LYMPHOCYTES % (AUTO) 24.1 % (22.0-44.0); MEAN CORPUSCULAR HEMOGLOBIN 31.2 pg (26.0-34.0); MEAN CORPUSCULAR VOLUME 92 fL (80-100); MONOCYTES # (AUTO) 0.4 K/uL (0.1-1.0); MONOCYTES % (AUTO) 8.4 % (2.0-9.0); NEUTROPHILS # (AUTO) 3.4 K/uL (1.8-7.7); NEUTROPHILS % (AUTO) 65.1 % (40.0-70.0); PLATELET COUNT (AUTO) 319 K/uL (150-450); RED BLOOD CELL COUNT(AUTO) 4.07 MIL/uL (4.50-5.90); RED CELL DISTRIBUTION WIDTH 16.5 % (11.5-14.5)
[2019-08-04 21:51] LABS: ANION GAP 13 mmol/L (8-16); CALCIUM, TOTAL 9.3 mg/dL (8.8-10.5); CARBON DIOXIDE 23 mmol/L (22-29); CHLORIDE 104 mmol/L (98-107); CREATININE 1.11 mg/dL (0.60-1.30); GLOMERULAR FILTR. RATE CALC > 60 mL/min (>60); GLUCOSE,RANDOM 88 mg/dL (70-110); SODIUM SERUM 140 mmol/L (136-145); UREA NITROGEN, BLOOD 13 mg/dL (7-18)
[2019-08-04 21:57] LABS: ALANINE AMINOTRANSFERASE 33 U/L (12-78); ALBUMIN 4.2 g/dL (3.4-5.0); ALKALINE PHOSPHATASE 130 U/L (46-116); ASPARTATE AMINOTRANSFERASE 28 U/L (15-37); BILIRUBIN,TOTAL 0.7 mg/dL (0.1-1.0); TOTAL PROTEIN, SERUM 7.6 g/dL (6.4-8.2)
[2019-08-04 22:18] LABS: VALPROIC ACID < 3 mcg/mL (50-100)
[2019-08-04 22:19] LABS: LITHIUM < 0.20 mmol/L (0.60-1.20)
[2019-08-05] MEDS ORDERED: HALOPERIDOL 5 MG TABLET PO PRN (00:30)
[2019-08-05] MEDS ORDERED: ZOLPIDEM TARTRATE 10 MG TABLET PO PRN (00:30)
[2019-08-05 02:45] VITALS: BP 124/74
[2019-08-05] MEDS: LORazepam 2 MG TABLET PO PRN (03:17)
[2019-08-05] MEDS ORDERED: -PHARMACY VACCINE NOTE- MISC ONE (04:45)
[2019-08-05] MEDS ORDERED: MAGNESIUM HYDROXIDE SUSPENSION 30 ML UDCUP PO PRN (08:45)
[2019-08-05] MEDS ORDERED: GuaiFENesin/D-METHORPHAN [SUGAR-FREE] 200-20MG/10 ML SYRUP UDCUP PO PRN (08:45)
[2019-08-05] MEDS ORDERED: PETROLATUM,WHITE 28 GM JELLY TP PRN (08:45)
[2019-08-05] MEDS ORDERED: IBUPROFEN 400 MG TABLET PO PRN (08:45)
[2019-08-05] MEDS ORDERED: ALBUTEROL SULFATE HFA 90 MCG/PUFF 8 GM INHALER IH PRN (08:45)
[2019-08-05] MEDS ORDERED: ACETAMINOPHEN 325 MG TABLET PO PRN (08:45)
[2019-08-05] MEDS ORDERED: MAG HYDROX/AL HYDROX/SIMETH ES 30 ML SUSPENSION UDCUP PO PRN (08:45)
[2019-08-05] MEDS ORDERED: NICOTINE 14 MG/24 HOUR PATCH TD PRN (08:45)
[2019-08-05] MEDS ORDERED: LOPERAMIDE HCL 2 MG CAPSULE PO PRN (08:45)
[2019-08-05] MEDS ORDERED: CloNIDine HCL 0.1 MG TABLET PO PRN (08:45)
[2019-08-05] MEDS ORDERED: ONDANSETRON HCL 4 MG TABLET PO PRN (08:45)
[2019-08-05] MEDS ORDERED: DOCUSATE SODIUM 100 MG CAPSULE PO PRN (08:45)
[2019-08-05 09:25] VITALS: BP 113/65
[2019-08-05 13:42] VITALS: BP 113/65
[2019-08-05 16:27] VITALS: BP 123/72
[2019-08-05] MEDS: LITHIUM CARBONATE 300 MG ER TABLET PO SCH (17:37)
[2019-08-05] MEDS: QUEtiapine FUMARATE 200 MG TABLET PO SCH (22:05)
[2019-08-05] MEDS: DIVALPROEX SODIUM 500 MG ER TABLET PO SCH (22:05)
[2019-08-06 06:10] VITALS: BP 104/61
[2019-08-06 08:34] LABS: HEMOGLOBIN A1C 5.4 % (3.8-5.6)
[2019-08-06 08:59] LABS: ALANINE AMINOTRANSFERASE 31 U/L (12-78); ALBUMIN 3.7 g/dL (3.4-5.0); ALKALINE PHOSPHATASE 119 U/L (46-116); ANION GAP 9 mmol/L (8-16); ASPARTATE AMINOTRANSFERASE 21 U/L (15-37); BILIRUBIN,TOTAL 0.6 mg/dL (0.1-1.0); CALCIUM, TOTAL 9.3 mg/dL (8.8-10.5); CARBON DIOXIDE 28 mmol/L (22-29); CHLORIDE 104 mmol/L (98-107); CHOL/HDL RATIO 2.8 (4.2-7.3); CHOLESTEROL 165 mg/dL (131-200); CREATININE 0.93 mg/dL (0.60-1.30); FREE T4 (FREE THYROXINE) 0.92 ng/dL (0.76-1.46); GLOMERULAR FILTR. RATE CALC > 60 mL/min (>60); GLUCOSE,RANDOM 75 mg/dL (70-110); HDL CHOLESTEROL 59 mg/dL (40-60); LDL CHOL (CALC.) 82 mg/dL (0-130); POTASSIUM 3.9 mmol/L (3.5-5.1); SODIUM SERUM 141 mmol/L (136-145); THYROID STIMULATING HORMONE 0.71 uIU/mL (0.36-3.74); TOTAL PROTEIN, SERUM 7.3 g/dL (6.4-8.2); TRIGLYCERIDES 119 mg/dL (15-150); UREA NITROGEN, BLOOD 13 mg/dL (7-18)
[2019-08-06] MEDS: QUEtiapine FUMARATE 200 MG TABLET PO SCH ×2 (09:04→20:50)
[2019-08-06] MEDS: LITHIUM CARBONATE 300 MG ER TABLET PO SCH ×2 (09:04→16:19)
[2019-08-06 16:14] VITALS: BP 101/65
[2019-08-06] MEDS: LORazepam 2 MG TABLET PO PRN (16:19)
[2019-08-06] MEDS: DIVALPROEX SODIUM 500 MG ER TABLET PO SCH (20:49)
[2019-08-07 08:19] VITALS: BP 145/77
[2019-08-07] MEDS: LITHIUM CARBONATE 300 MG ER TABLET PO SCH ×2 (08:43→16:17)
[2019-08-07] MEDS: QUEtiapine FUMARATE 200 MG TABLET PO SCH ×2 (08:43→20:25)
[2019-08-07 16:14] VITALS: BP 122/78
[2019-08-07] MEDS: DIVALPROEX SODIUM 500 MG ER TABLET PO SCH (20:25)
[2019-08-08 00:45] VITALS: BP 132/73
[2019-08-08 08:13] VITALS: BP 109/68
[2019-08-08] MEDS: QUEtiapine FUMARATE 200 MG TABLET PO SCH ×2 (08:18→20:17)
[2019-08-08] MEDS: LITHIUM CARBONATE 300 MG ER TABLET PO SCH ×2 (08:18→16:07)
[2019-08-08] MEDS: LORazepam 1 MG TABLET PO PRN (16:07)
[2019-08-08 16:21] VITALS: BP 119/67
[2019-08-08] MEDS: DIVALPROEX SODIUM 500 MG ER TABLET PO SCH (20:17)
[2019-08-09 05:52] VITALS: BP 110/72
[2019-08-09 08:18] VITALS: BP 104/67
[2019-08-09] MEDS: LITHIUM CARBONATE 300 MG ER TABLET PO SCH ×2 (08:28→16:23)
[2019-08-09] MEDS: QUEtiapine FUMARATE 200 MG TABLET PO SCH ×2 (08:29→20:45)
[2019-08-09 16:17] VITALS: BP 115/67
[2019-08-09] MEDS: LORazepam 1 MG TABLET PO PRN (16:24)
[2019-08-09] MEDS: DIVALPROEX SODIUM 500 MG ER TABLET PO SCH (20:45)
[2019-08-10 06:06] VITALS: BP 114/62
[2019-08-10 08:35] VITALS: BP 103/61
[2019-08-10] MEDS: QUEtiapine FUMARATE 200 MG TABLET PO SCH ×2 (09:33→20:14)
[2019-08-10] MEDS: LITHIUM CARBONATE 300 MG ER TABLET PO SCH ×2 (09:33→16:37)
[2019-08-10 16:18] VITALS: BP 131/74
[2019-08-10] MEDS: LORazepam 1 MG TABLET PO PRN (16:37)
[2019-08-10] MEDS: DIVALPROEX SODIUM 500 MG ER TABLET PO SCH (20:13)
[2019-08-11 06:27] VITALS: BP 108/69
[2019-08-11] MEDS: QUEtiapine FUMARATE 200 MG TABLET PO SCH ×2 (08:45→20:10)
[2019-08-11] MEDS: LITHIUM CARBONATE 300 MG ER TABLET PO SCH ×2 (08:45→16:29)
[2019-08-11 09:00] VITALS: BP 99/64
[2019-08-11 16:58] VITALS: BP 108/65
[2019-08-11] MEDS: DIVALPROEX SODIUM 500 MG ER TABLET PO SCH (20:10)
[2019-08-12 06:18] VITALS: BP 114/79
[2019-08-12] MEDS: LITHIUM CARBONATE 300 MG ER TABLET PO SCH ×2 (08:46→16:51)
[2019-08-12] MEDS: QUEtiapine FUMARATE 200 MG TABLET PO SCH ×2 (08:46→20:07)
[2019-08-12 09:29] VITALS: BP 130/73
[2019-08-12 16:46] VITALS: BP 121/83
[2019-08-12] MEDS: DIVALPROEX SODIUM 500 MG ER TABLET PO SCH (20:06)
[2019-08-13 00:30] VITALS: BP 117/76
[2019-08-13 08:09] VITALS: BP 121/72
[2019-08-13 08:39] LABS: % IRON SATURATION 29.5 % (30-44)
[2019-08-13 08:47] LABS: LITHIUM 0.43 mmol/L (0.60-1.20)
[2019-08-13] MEDS ORDERED: MULTIVITAMINS WITH MINERALS, THERAPEUTIC TABLET PO SCH (09:00)
[2019-08-13] MEDS: QUEtiapine FUMARATE 200 MG TABLET PO SCH (09:01)
[2019-08-13] MEDS: LITHIUM CARBONATE 300 MG ER TABLET PO SCH ×2 (09:02→16:01)
[2019-08-13 16:32] VITALS: BP 127/84
== END 2019-08-13 18:00 | disposition home or self-care (01) | DRG 750 ==
LOC: EMS 20:36 → B3A 08-05 00:18
PROVIDERS: ADMIT Psychiatry & Neurology Child & Adolescent Psychiatry; ATTEND Psychiatry & Neurology Child & Adolescent Psychiatry
DX: F25.0 Schizoaffective disorder, bipolar type (principal); G62.9 Polyneuropathy, unspecified; R45.851 Suicidal ideations; D64.9 Anemia, unspecified; I10 Essential (primary) hypertension; F41.9 Anxiety disorder, unspecified; R05 Cough; F12.10 Cannabis abuse, uncomplicated; R07.9 Chest pain, unspecified; F17.210 Nicotine dependence, cigarettes, uncomplicated; F99 Mental disorder, not otherwise specified; Z59.0 Homelessness; Z91.018 Allergy to other foods; Z79.899 Other long term (current) drug therapy; Z71.51 Drug abuse counseling and surveillance of drug abuser
CPT/HCPCS: 83036; 83540; 83550; 84439; 84443; G0480